=== PATIENT | female | born 1985 | race African-American/Black ===

== ENCOUNTER 2016-06-06 12:45 | Outpatient (RCR) | payer OTHER | END 2016-06-14 | disposition still patient (30) | LOC: WSPT | DX: M25.562 Pain in left knee (principal); M25.561 Pain in right knee ==

== ENCOUNTER 2016-07-13 10:15 | Outpatient (RCR) | payer OTHER | END 2016-07-14 07:52 | disposition home or self-care (01) | LOC: WSPT 10:15 | DX: M25.562 Pain in left knee (principal); M25.561 Pain in right knee ==